=== PATIENT | female | born 1970 | race Caucasian/White ===

== ENCOUNTER → 2017-11-20 09:32 | Outpatient (CLI) | payer OTHER, SELFPAY ==
--- NOTE | 2017-11-20 09:37 | HPBD_ITS ---
STUDY: DUAL ENERGY X-RAY ABSORPTIOMETRY / DXA REASON FOR EXAM: Female, 47 years old. History of celiac disease. Loss of height. TECHNIQUE: Bone Mineral Density (BMD) measurements of lumbar spine and bilateral hips were obtained. COMPARISON: Comparison is made with prior study dated November 17, 2015. FINDINGS: Lumbar Spine (L1-L4): g/cm2 (1.155) / T-score (-0.2) / Z-score (-0.2) Findings are suggestive of normal bone density with a low fracture risk. Left Femur Total: g/cm2 (0.787) / T-score (-1.7) / Z-score (-1.5) Left Femoral Neck: g/cm2 (0.686) / T-score (-2.5) / Z-score (-2.0) Right Femur Total: g/cm2 (0.849) / T-score (-1.3) / Z-score (-1.0) Right Femoral Neck: g/cm2 (0.779) / T-score (-1.9) / Z-score (-1.3) The T-Scores on the most recent prior examination were: Lumbar Spine (L1-L4): There has been improvement of bone density since the previous examination. Left Femur Total: which represents a worsening of 1.0%. Right Femur Total: which represents a worsening of 1.0%. HPBD/Dexa Bone Density Study (HP) IMPRESSION: The patient is considered osteopenic as outlined below according to World [place] Organization (WHO) criteria with a moderate fracture risk. There has been worsening of bone density since the previous examination. Reference Information: The T-score is the number of standard deviations above or below the standard which is normal for young adults at their peak bone mineral density. The World Health Organization (WHO) interprets the T-scores as follows: Above -1 Normal bone density Between -1 and -2.5 Osteopenia Equal to / or below -2.5 Osteoporosis As a practical clinical guideline, osteopenia may be graded as follows: Mild -1 through -1.5 Moderate -1.6 through -2.0 Severe -2.1 through -2.4 The Z-score is the number of standard deviations above or below age-matched controls. A Z-score of less than -1.5 would be considered abnormal. References: 1. NIH Osteoporosis and Related Bone Diseases http://www.osteo.org 2. International Society for Clinical Densitometry http://www.iscd.org 3. National Osteoporosis Foundation http://www.nof.org Electronically Signed: Wilson Escobedo MD at 12:54 EDT Tel [phone], Service support ,
== END ==
PROVIDERS: Family Provider Internal Medicine; PCP Internal Medicine; Visit Provider Internal Medicine
DX: M81.0 Age-related osteoporosis without current pathological fracture (principal)
CPT/HCPCS: 77080

== ENCOUNTER → 2018-02-01 13:01 | Outpatient (CLI) | payer OTHER, SELFPAY ==
[2018-02-01 17:31] LABS: Chlamydia Trachomatis by PCR Negative (Negative); Neisserai gonorrhoeae by PCR Negative (Negative); Probe Check PASS; Sample Adequacy Control PASS; Specimen Processing Control PASS
== END ==
PROVIDERS: Visit Provider Obstetrics & Gynecology
DX: Z11.3 Encounter for screening for infections with a predominantly sexual mode of transmission (principal)
CPT/HCPCS: 87491; 87591

== ENCOUNTER → 2018-02-25 16:06 | Outpatient (CLI) | payer OTHER, SELFPAY ==
--- NOTE | 2018-02-25 16:19 | BI_ITS ---
MAMMOGRAPHY - BILATERAL SCREENING REASON FOR EXAM: Female, 47 years old. Routine annual screening examination. PERTINENT HISTORY: Non-contributory. TECHNIQUE: Digital bilateral breast esau (3D mammographic acquisition) in the CC and MLO projections. 2-D mediolateral oblique (MLO) and craniocaudad (CC) views of both breasts were obtained. CAD: Full Field Digital Mammography with Computer Added Detection was performed. COMPARISON: Comparison is made with prior study dated February 08, 2017 and February 07, 2016. FINDINGS: Breast Composition: The breasts are heterogeneously dense, which may obscure small masses. There are no dominant masses or suspicious calcifications. Once again, there is asymmetry of breast tissue were more breast tissue is seen in the retroareolar region of the right breast as compared to the left side. No other significant abnormalities are identified. There has been no significant change since the prior study. BI/SCREENING MAMM (CAD), BILAT IMPRESSION: Stable bilateral screening mammogram. Yearly follow-up mammogram recommended. (A) ASSESSMENT CATEGORY: BIRADS Category 2: Benign. A letter regarding these results will be sent to the patient by the facility within 30 days. Approximately 10% of breast cancers are not detected by mammography. A normal mammogram should not delay biopsy of a clinically suspicious abnormality. [id number] Electronically Signed: Wilson Escobedo MD at 8:18 EDT Tel [phone], Service support ,
== END ==
PROVIDERS: Family Provider Internal Medicine; PCP Internal Medicine; Visit Provider Obstetrics & Gynecology
DX: Z12.31 Encounter for screening mammogram for malignant neoplasm of breast (principal)
CPT/HCPCS: 77063; 77067

== ENCOUNTER → 2018-10-25 15:26 | Outpatient (CLI) | payer OTHER, SELFPAY ==
--- NOTE | 2018-10-25 15:30 | RAD_ITS ---
STUDY: X-RAY CHEST REASON FOR EXAM: Female, 47 years old. Cough TECHNIQUE: Frontal and lateral views of the chest were obtained. COMPARISON: Prior comparison studies are not available for review at this time. FINDINGS: Lines and tubes: None. Lungs: Adequately aerated. No focal airspace opacities. Pleura: No demonstrated abnormality. Mediastinum/keara: Unremarkable. Cardiovascular: Normal size cardiac silhouette. Central vascularity unremarkable. Thoracic aorta unremarkable. Soft tissues: Unremarkable. Bones: Unremarkable. Upper abdomen: No demonstrated abnormality. RAD/Chest PA and Lateral IMPRESSION: No evidence of focal consolidation or pleural effusion. Electronically Signed: Darlene Dahl MD at 15:07 EST , Service support ,
== END ==
PROVIDERS: Family Provider Internal Medicine; PCP Internal Medicine; Referring Provider Nurse Practitioner; Visit Provider Nurse Practitioner
DX: R05 Cough (principal)
CPT/HCPCS: 71046

== ENCOUNTER → 2019-02-26 11:55 | Outpatient (CLI) | payer OTHER, SELFPAY ==
--- NOTE | 2019-02-26 11:57 | BI_ITS ---
MAMMOGRAPHY - BILATERAL SCREENING 3-D TOMOSYNTHESIS REASON FOR EXAM: Female, 48 years old. Bilateral Screening 3-D tomosynthesis PERTINENT HISTORY: History of control for 22 years.. TECHNIQUE: 2-D mammograms and 3-D Tomosynthesis of the breast (s) were performed. CAD was performed. COMPARISON: February 25, 2018, February 08, 2017, February 07, 2016 FINDINGS: The breast composition is almost entirely fat. Scattered benign calcifications are seen. No dense spiculated masses or suspicious microcalcifications are identified. No architectural distortion is identified. There is no skin thickening or retraction. There has been no significant change since the prior study. BI/SCREEN MAMM (CAD) W/GILDARDO BILAT IMPRESSION: No mammographic signs of malignancy. Routine yearly mammograms recommended. ASSESSMENT CATEGORY: BIRADS Category 2: Benign. A letter regarding these results will be sent to the patient by the facility within 30 days. FOLLOW UP RECOMMENDATION: Yearly follow up mammogram recommended. (A) Approximately 10% of breast cancers are not detected by mammography. A normal mammogram should not delay biopsy of a clinically suspicious abnormality. Electronically Signed: Robert Schuster MD at 11:59 EDT , Service support ,
== END ==
PROVIDERS: Family Provider Internal Medicine; PCP Internal Medicine; Referring Provider Obstetrics & Gynecology; Visit Provider Obstetrics & Gynecology
DX: Z12.31 Encounter for screening mammogram for malignant neoplasm of breast (principal)
CPT/HCPCS: 77063; 77067

== ENCOUNTER → 2019-06-16 12:00 | Outpatient (CLI) | payer OTHER, SELFPAY ==
--- NOTE | 2019-06-16 12:31 | CT_ITS ---
STUDY: CT ABDOMEN AND PELVIS WITH AND WITHOUT CONTRAST REASON FOR EXAM: Female, 48 years old. Lower abdominal pain. History of celiac disease. RADIATION DOSAGE (If Supplied By Facility): CTDIvol = ( 8.11 ) mGy, DLP = ( 747.06 ) mGycm TECHNIQUE: Transaxial images were obtained from the dome of the diaphragm to the symphysis pubis without oral contrast. IV Isovue 300 100 was administered. Sagittal and coronal images were reconstructed. Individualized dose optimization techniques were used for this CT. COMPARISON: Comparison is made with prior study dated October 25, 2016. FINDINGS: The visualized lung bases are unremarkable. The visualized portions of the heart are within normal limits. Normal liver. Normal gallbladder and extrahepatic biliary system. Normal spleen. Normal pancreas. Normal bilateral adrenal glands. Stable one sinus cyst in the inferior portion of the right kidney. Normal left kidney. There is a small hiatal hernia. Normal small intestine. Normal colon. The appendix is visualized and appears normal. Normal abdominal aorta. Normal inferior vena cava. Normal retroperitoneum. Normal urinary bladder. There is a small umbilical hernia containing fat. Normal osseous structures. CT/CT Abd/Pelvis W/WO Contrast IMPRESSION: Normal unenhanced and enhanced CT of the abdomen and pelvis. Electronically Signed: Wilson Escobedo, at 13:48 EDT , Service support ,
[2019-06-16 12:50] LABS: Absolute Lymphocyte Count 2.71 X10^3/uL (0.83-4.51); Absolute Neutrophil Count 5.2 X10^3/uL (2.0-7.7); Basophil# 0.04 X10^3/uL; Basophil% 0.5 % (0-1); Eosinophil# 0.08 X10^3/uL; Eosinophils% 0.9 % (0-5); Hematocrit 37.7 % (37-47); Hemoglobin 12.4 g/dL (12.0-15.0); Lymphocyte # 2.71 X10^3/ul (4.0); Lymphocyte % 31.5 % (19-41); Mean Corp Hgb Conc 32.9 g/dL (32-36); Mean Corpuscular Hgb 31.8 pg (27.0-32.0); Mean Corpuscular Volume 96.7 fL (81-99); Mean Platelet Vol. 9.6 fl (6.2-12.0); Monocyte# 0.56 X10^3/uL; Monocyte% 6.5 % (0-10); NRBC Flagged by Analyzer 0 % (0-5); Neutrophil % 60.4 % (47-70); Platelet Count 235 K/mm3 (150-450); RBC Distribution Width CV 12.2 % (11.6-14.6); RBC Distribution Width SD 42.7 fl (35.1-43.9); White Blood Count 8.6 K/mm3 (4.4-11.0)
[2019-06-16 13:04] LABS: Partial Thromboplast Time 25.5 Seconds (24.1-36.2); Prothrombin Time (Protime)PT. 13.2 SECONDS (11.7-14.9)
[2019-06-16 13:13] LABS: ALB/GLOB Ratio 0.9 RATIO (0.9-2.4); AST(SGOT) 14 U/L (15-37); Alanine Aminotransfer ALT/SGPT 17 U/L (13-56); Albumin, Serum 3.4 g/dL (3.2-5.0); Alkaline Phosphatase 59 U/L (45-117); Anion Gap 8 (5-15); BUN 15 mg/dL (7-18); BUN/Creat Ratio 13.9 RATIO (10-20); Calcium,Total 8.8 mg/dL (8.5-10.1); Chloride 108 mmol/L (98-107); Creatinine, Serum 1.08 mg/dL (0.55-1.02); EST Glomerular Filtration Rate 58 mL/min (>60); Est Glom Filt Rate - Afr Amer 70 mL/min (>60); Globulin 3.6 g/dL (2.2-4.2); Glucose 142 mg/dL (74-106); Potassium 3.7 mmol/L (3.5-5.1); Sodium Level 140 mmol/L (136-145)
== END ==
PROVIDERS: Family Provider Internal Medicine; PCP Internal Medicine; Referring Provider Nurse Practitioner Gerontology; Visit Provider Nurse Practitioner Gerontology
DX: R31.9 Hematuria, unspecified (principal); R10.9 Unspecified abdominal pain
CPT/HCPCS: 36415; 74178; 80053; 85025; 85610; 85730; Q9967

== ENCOUNTER → 2019-11-27 12:58 | Outpatient (CLI) | payer OTHER, SELFPAY ==
--- NOTE | 2019-11-27 13:06 | BD_ITS ---
STUDY: DUAL ENERGY X-RAY ABSORPTIOMETRY / DXA REASON FOR EXAM: Female, 49 years old. HX OF OSTEO WITH THERAPY -- TAKES CALCIUM, VITAMIN D AND MULTIVITAMIN -- HX OF TAKING ACTONEL IN PAST -- DOES HIGH AMOUNT OF EXERCISE- STARTED CROSSFIT FEW YRS AGO -- FAMILY HX OF OSTEO- MOTHER -- VIKI OF 2 INCHES TECHNIQUE: Bone Mineral Density (BMD) measurements of lumbar spine and bilateral hips were obtained. COMPARISON: Comparison is made with prior examination dated November 20, 2017. FINDINGS: Lumbar Spine (L1-L4): g/cm2 (1.171) / T-score (-0.1) / Z-score (0.1) Findings are suggestive of normal bone density with a low fracture risk. Increased thoracic kyphosis. Left Femur Total: g/cm2 (0.812) / T-score (-1.6) / Z-score (-1.2) Left Femoral Neck: g/cm2 (0.733) / T-score (-2.2) / Z-score (-1.5) Right Femur Total: g/cm2 (0.841) / T-score (-1.3) / Z-score (-1.0) Right Femoral Neck: g/cm2 (0.760) / T-score (-2.0) / Z-score (-1.3) The T-Scores on the most recent prior examination were: Lumbar Spine (L1-L4): There has been improvement of bone density since the previous examination. Left Femur Total: which represents an improvement of 3.2%. Right Femur Total: which represents a worsening of 0.9%. BD/Dexa Bone Density Study IMPRESSION: The patient is considered osteopenic as outlined below according to World [place] Organization (WHO) criteria with a moderate fracture risk. There has been improvement of bone density since the previous examination. Reference Information: The T-score is the number of standard deviations above or below the standard which is normal for young adults at their peak bone mineral density. The World Health Organization (WHO) interprets the T-scores as follows: Above -1 Normal bone density Between -1 and -2.5 Osteopenia Equal to / or below -2.5 Osteoporosis As a practical clinical guideline, osteopenia may be graded as follows: Mild -1 through -1.5 Moderate -1.6 through -2.0 Severe -2.1 through -2.4 The Z-score is the number of standard deviations above or below age-matched controls. A Z-score of less than -1.5 would be considered abnormal. References: 1. NIH Osteoporosis and Related Bone Diseases http://www.osteo.org 2. International Society for Clinical Densitometry http://www.iscd.org 3. National Osteoporosis Foundation http://www.nof.org Electronically Signed: Wilson Escobedo, at 15:28 EDT , Service support ,
== END ==
PROVIDERS: PCP Internal Medicine; Referring Provider Internal Medicine; Visit Provider Internal Medicine
DX: M81.0 Age-related osteoporosis without current pathological fracture (principal)
CPT/HCPCS: 77080

== ENCOUNTER → 2020-03-02 14:40 | Outpatient (CLI) | payer OTHER, SELFPAY ==
--- NOTE | 2020-03-02 14:43 | BI_ITS ---
MAMMOGRAPHY - BILATERAL SCREENING REASON FOR EXAM: Female, 49 years old. Routine annual screening examination. PERTINENT HISTORY: Non-contributory. TECHNIQUE: Digital bilateral breast gildardo (3D mammographic acquisition) in the CC and MLO projections. 2-D mediolateral oblique (MLO) and craniocaudad (CC) views of both breasts were obtained. CAD: Full Field Digital Mammography with Computer Added Detection was performed. COMPARISON: Comparison is made with prior examination dated February 26, 2019 and February 25, 2018. FINDINGS: Breast Composition: The breasts are heterogeneously dense, which may obscure small masses. There are no dominant masses or suspicious calcifications. No other significant abnormalities are identified. There has been no significant change since the prior study. BI/SCREEN MAMM (CAD) W/GILDARDO BILAT IMPRESSION: Stable bilateral screening mammogram. Yearly follow-up mammogram recommended. (A) ASSESSMENT CATEGORY: BIRADS Category 1: Negative. A letter regarding these results will be sent to the patient by the facility within 30 days. Approximately 10% of breast cancers are not detected by mammography. A normal mammogram should not delay biopsy of a clinically suspicious abnormality. [id number] Electronically Signed: Wilson Escobedo, at 15:48 EDT , Service support ,
== END ==
PROVIDERS: PCP Internal Medicine; Referring Provider Obstetrics & Gynecology; Visit Provider Obstetrics & Gynecology
DX: Z12.31 Encounter for screening mammogram for malignant neoplasm of breast (principal)
CPT/HCPCS: 77063; 77067

== ENCOUNTER → 2020-04-22 | Outpatient (CLI) | payer OTHER, SELFPAY | END | disposition home or self-care (01) | LOC: LABSPEC 15:26 | PROVIDERS: PCP Internal Medicine; Referring Provider Otolaryngology; Visit Provider Otolaryngology | DX: J02.9 Acute pharyngitis, unspecified (principal) | CPT/HCPCS: 87070 ==

== ENCOUNTER → 2020-05-05 07:56 | Outpatient (CLI) | payer OTHER, SELFPAY ==
--- NOTE | 2020-05-05 08:01 | US_ITS ---
STUDY: ABDOMINAL ULTRASOUND - RIGHT UPPER QUADRANT REASON FOR VISIT: Female, 49 years old EPIGASTRIC PAIN TECHNIQUE: Ultrasound evaluation of the right upper quadrant was performed with real-time and static tejeda-scale imaging. TECHNICAL QUALITY: Adequate. COMPARISON: Comparison is made with prior examination dated 08/24/2010. FINDINGS: Liver: The liver measures 13.9 cm. There is mild increased echogenicity consistent with mild fatty infiltration. The bile ducts are within normal limits. There is hepatic color flow. The direction of portal flow is hepatopetal. There is no demonstrated mass lesion. Gallbladder: Normal distended gallbladder. The gallbladder wall measures 2.1 mm. There is a negative sonographic Beltran''s sign. There is no pericholecystic fluid. There are no gallstones. There is a 2 mm polyp adherent to the gallbladder wall. Common Bile Duct (C.B.D.): The common bile duct measures 4.1 mm. Pancreas: Normal size of the head, body and tail of the pancreas. There is increased echogenicity of the pancreas. There is no demonstrated pancreatic mass or cyst. Right Kidney: Normal size of the right kidney. The right kidney measures 9.3 cm x 4.7 cm x 3.4 cm. Normal renal cortex. The right cortex measures 1.2 cm. There is a 1 cm x 1.2 cm x 0.9 cm renal cyst. There is no right hydronephrosis. US/Abdomen Limited IMPRESSION: Mild fatty infiltration of the liver. 2 mm gallbladder polyp. Electronically Signed: Wilson Escobedo, at 13:38 EDT , Service support ,
== END ==
PROVIDERS: PCP Internal Medicine; Referring Provider Internal Medicine; Visit Provider Internal Medicine
DX: K76.0 Fatty (change of) liver, not elsewhere classified (principal); K82.4 Cholesterolosis of gallbladder
CPT/HCPCS: 76705

== ENCOUNTER 2020-05-31 08:09 | Day surgery (SDC) | payer OTHER, SELFPAY ==
[2020-05-14 13:28] VITALS: BMI 25.4
--- NOTE | 2020-05-18 01:34 | HP_ITS ---
Intake Vital Signs 05/14/20 Height 5 ft 05/14/20 Weight: 130 lb 05/14/20 BP 126/91 H 05/14/20 Blood Pressure Location Rt brachial 05/14/20 Position Sitting 05/14/20 Respiration 18 Intake Visit Reasons: GALLBLADDER POLYP Vinyl Dipper Required: No Is patient in pain?: No Allergies Penicillins Allergy (Mild, Verified 05/14/20 13:29) Unknown Medications calcium carbonate 500 mg calcium (1,250 mg) tablet 500 mg PO DAILY 05/14/20 [History Confirmed 05/14/20] lactobacillus combination no.8 3 billion cell capsule 3,000 mmu cells PO DAILY 05/14/20 [History Confirmed 05/14/20] multivitamin 1 tab PO DAILY 05/14/20 [History Confirmed 05/14/20] norethindrone 1.5 mg-ethinyl estradiol 30 mcg(21)/iron 75 mg(7) tablet tab PO 05/14/20 [History Confirmed 05/14/20] omeprazole 40 mg capsule,delayed release ea PO 05/14/20 [History Confirmed 05/14/20] PFSH Medical History Acid reflux (Acute) Surgical History S/P section (Acute) Family History Father Hypertension Social History (Updated 05/18/20 @ 13:[address] Abdifatah Lee MD) Smoking Status: Never smoker alcohol intake: current alcohol intake frequency: holidays/special occasions only HPI HPI Surgical H&P: Yes HPI: SAMANTHA ESCALANTE, is a 49 F who presents to the office today for Evaluation for reflux. On November 16 she was seen by her ear nose and throat physician who diagnosed her with chronic sore throat secondary to reflux and she was subsequently started on a PPI. She is been having increasing burping spells of diarrhea her sore throat is somewhat better but not completely better. She states that she is still having discharge post nasally. Patient has a history of celiac disease is been quite some years since her last upper endoscopy. An ultrasound of her gallbladder was obtained which showed gallbladder wall to measure 2 mm a negative Beltran sign no pericholecystic fluid no gallstones and a 2 mm polyp adherent to the gallbladder wall. Common bile duct measured 4.1 cm. ROS General General: Yes fatigue; no weight change, appetite, colon cancer, breast cancer or weakness HEENT HEENT: No difficulty swallowing, eye injury, eye surgery, swollen glands or hoarseness Endo Endocrine: No thyroid disease, diabetes mellitus, thyroid cancer, Hair loss, heat intolerance or cold intolerance Skin Skin: No rash or changing moles Breast Breast: No left breast lump, right breast lump, nipple discharge, breast pain, abnormal mammogram, abnormal US or breast enlargement Musc Musculoskeletal: Yes back problems; no arthritis, rheumatoid arthritis, gout or joint pain Cardio Cardiovascular: No murmur, pacemaker, heart disease, atrial fibrillation, high blood pressure, heart attack, heart stent, palpitations, shortness of breat with exertion or chest pain Psych Psychiatric: No depression, anxiety or hearing voices Resp Respiratory: No shortness of breath, No sleep apnea, No cough, No COPD, No asthma, No emphysema, No wheezing Gastro Gastrointestinal: Yes abdominal pain, Yes nausea or vomiting, Yes diarrhea, Yes constipation, No blood in stool, Yes acid reflux, Yes hemorrhoids, No ulcers, Yes gallbladder problem, No black,tarry stools Ashutosh Hematologic: No blood thinners, No blood disorders, No bleeding, No anemia, No blood clots Neuro Neurologic: No system reviewed and no additional complaints, except as docu, No as per HPI, No abnormal walking, No abnormal hearing, No abnormal movements, No abnormal speech, No behavioral changes, No burning sensations, No confusion, No seizure-like activity, No unsteadiness, No dizziness, No localized weakness, No frequent falls, No headache(s), No lack of coordination, No loss of vision, No memory loss, No numbness, No other visual disturbances, No radiating pain, No restless legs, No sensory deficit, No fainting, No tingling, No tremor(s), No weakness, No other Exam Const General: no acute distress, well developed, well hydrated Orientation: oriented to person, oriented to place, oriented to time [facility] Head: normocephalic, atraumatic Ears: external ears normal Mouth: moist mucous membranes Eyes Sclera: sclerae normal Pupils: normal by confrontation Neck Neck: no lymphadenopathy noted Neck mass: No Thyroid: thyroid normal, symmetrical Chest Chest palpation & inspection: normal inspection of the chest Breast Palpation: No nipple discharge Resp Effort & Inspection: normal respiratory effort Auscultation: clear to auscultation bilaterally Percussion: percussion normal Cardio Rate: regular rate Rhythm: regular rhythm Heart Sounds: no murmurs GI Palpation: soft, no hepatosplenomegaly, no masses, nontender Rectal Exam: other Other: Rectal exam deferred. Extrem General: normal to inspection, no clubbing, cyanosis or edema Assessment & Plan Problems 1. Gastroesophageal reflux disease, esophagitis presence not specified K21.9 2. Polyp of gallbladder K82.4 Plan I have discussed the above with the patient. I have offered the patient esophagogastroduodenoscopy for evaluation. I have explained the risks/benefits of the procedure and described the procedure. I have discussed the risks with the patient, including but not limited to: infection, bleeding, perforation of the GI tract requiring emergency surgery, inability to complete the procedure, injury to any internal organs, complications of anesthesia, etc. - the patient understands and agrees to proceed. I have answered all the patient's questions to the patient's satisfaction and the patient has no further questions. The patient has been given instructions for the colon cleansing preparation. We will do a biopsy of her small intestines. If this exam really is negative we have a couple avenues to go possibly obtaining a gastric emptying study or evaluating her gallbladder with a HIDA scan with ejection fraction. I will wait to see what we find with the upper scope first prior to further work-up. Coding Level of Care Code Off vis,new,level 3 Diagnoses Gastroesophageal reflux disease, esophagitis presence not specified K21.9 ??Esophagitis presence: esophagitis presence not specified Polyp of gallbladder K82.4 COVID (Procedure Consent) Procedure Criteria Procedure Criteria: Yes Elective The surgeon/proceduralist and patient have discussed in detail the risk of exposure to and/or potential harm posed by the COVID-19 virus with having a surgery/procedure at this time versus the risk of? delaying the surgery/procedure. It is not possible to know either the risk of delaying the surgery or procedure or chance of getting an infection with perfect accuracy, but a joint decision was made between the patient and the surgeon/proceduralist ?to proceed at this time with the scheduled surgery/procedure as indicated on the consent form. 05/18/20 1335 <Electronically signed by Abdifatah leija MD> Date _ Abdifatah Lee MD I have re-examined the patient. There are no clinical changes since date of exam.
[2020-05-31 08:38] LABS: Internal QC Validated? YES +Cl - CLEAR BKGD; Pregnancy, Urine Negative Negative
[2020-05-31 08:42] VITALS: BP 117/83; PULSE 75; RESP 16; TEMP 37.1; O2SAT 100; BMI 25.6
[2020-05-31] MEDS: Lactated Ringers 1,000 ML 100 ML IV (08:47)
--- NOTE | 2020-05-31 09:15 | EGD_PTH ---
PATIENT: SAMANTHA ESCALANTE LOC: EN U#:[id number] AGE/SX: 49/F ROOM: RE05/31/[address]: Dr. Abdifatah Lee MD : 1970 BED: DIS: 05/31/2020 SPEC #: [id number] RECD: 05/31/20 12:04 STATUS: THIEN SLY #: [id number] KASHMIR: 05/31/20 09:[address]: Abdifatah Lee DEPT: SURGICAL PATHOLOGY RECD BY: Giacomo Andre ENTERED: 05/31/20 13:47 SP TYPE: EGD BIOPSY OTHR DR: Dr. Renee Carroll DO Tissues: A - Duodenum, NOS B - Gastric mucous membrane C - Esophagus, NOS Procedures: Special Stain Group II Surgery Specimen Level IV Alcian Blue/PAS (control) HEADER OPERATION: EGD ([facility] [place]) PRE-OP DIAGNOSIS: GERD TISSUE SUBMITTED: A - Duodenal biopsy, B - Antrum biopsy for histo and H. pylori, C - Distal esophagus biopsy MICROSCOPIC DIAGNOSIS A. Duodenum, biopsy: No pathologic change. B. Gastric antrum, biopsy: Minimal chronic inflammation. See comment. C. Distal esophagus, biopsy: Gastroesophageal junctional biopsy with minimal chronic inflammation. No evidence of esophagitis. No evidence of goblet cell metaplasia. See comment. AM:malissa 06/01/20 COMMENT B. The results of immunohistochemistry for Helicobacter pylori will be reported separately ([id number]). C. Alcian blue/PAS stain with matched control supports the above diagnosis. MICROSCOPIC DESCRIPTION Slides are reviewed. GROSS DESCRIPTION A - Received in fixative is one container labeled with the patient's name and designated duodenum biopsy. The specimen consists of two irregular fragments of light pedraza soft tissue that in aggregate measure 0.7 x 0.5 x 0.1 cm. The specimen is totally submitted in one cassette. B - Received in fixative is one container labeled with the patient's name and designated antrum biopsy. The specimen consists of one irregular fragment of light pedraza soft tissue that measures 0.7 x 0.2 x 0.1 cm. The specimen is totally submitted in one cassette. C - Received in fixative is one container labeled with the patient's name and designated distal esophagus biopsy. The specimen consists of two irregular fragments of light pedraza soft tissue that in aggregate measure 0.6 x 0.6 x 0.1 cm. The specimen is totally submitted in one cassette. / AM:malissa 05/31/20 TC:3 CPT: 23711 x3, [id number]
--- NOTE | 2020-05-31 09:15 | IMM_PTH ---
PATIENT: SAMANTHA ESCALANTE LOC: EN U#:[id number] AGE/SX: 49/F ROOM: RE05/31/[address]: Dr. Abdifatah Lee MD : 1970 BED: DIS: 05/31/2020 SPEC #: [id number] RECD: 05/31/20 14:33 STATUS: THIEN REQ #: [id number] KASHMIR: 05/31/20 09:[address]: Abdifatah Lee DEPT: IMMUNOHISTOCHEMISTRY RECD BY: Sarai Goddard ENTERED: 05/31/20 14:34 SP TYPE: IMMUNO OTHR DR: Dr. Renee Carroll DO Tissues: B - Stomach, NOS Procedures: H Pylori (initial) PHYSICIAN & INSTITUTION [place] [id number] SPECIMEN INFORMATION: Tissue Source: B - Antrum biopsy Clinical Info: GERD Specimen Number: [id number] CPT code: 49628 METHODOLOGY: Deparaffinized sections of prefer/formalin-fixed tissue or PAP/DQ stained slides are incubated with monoclonal/polyclonal antibodies/oligonucleotide probes. Localization is made via biotin free immunoperoxidase method. Appropriate controls are performed and reacted as expected. Results on target cell population are indicated in the following table: RESULTS: ANTIBODY / CLONE RESULT Block B H Pylori (polyclonal) negative These tests were developed and their performance characteristics determined by [facility]. They may not have been cleared or approved by the U.S. Food and Drug Administration. The FDA has determined that such clearance or approval is not necessary. INTERPRETATION: B. Antrum, biopsy: Negative for Helicobacter pylori organisms. AM:malissa 06/01/20
[2020-05-31 09:36] VITALS: BP 107/83; BP 117/83; PULSE 80; RESP 16; TEMP 37.2; O2SAT 100
--- NOTE | 2020-05-31 09:38 | OP.EGD_ITS ---
Patient Name: Lluvia Garrido Procedure Date: 05/31/2020 9:10 AM Date of : 1970 Age: 49 Procedure: Upper GI endoscopy Indications: Gastro-esophageal reflux disease Providers: Abdifatah Lee MD Referring MD: Renee Carroll Medicines: See the Anesthesia note for documentation of the administered medications Patient Profile: This is a 49 year old female. Refer to note in patient chart for documentation of history and physical. Complications: No immediate complications. Procedure: Pre-Anesthesia Assessment: - Prior to the procedure, a History and Physical was performed, and patient medications and allergies were reviewed. The patient's tolerance of previous anesthesia was also reviewed. The risks and benefits of the procedure and the sedation options and risks were discussed with the patient. All questions were answered, and informed consent was obtained. Prior Anticoagulants: The patient has taken no previous anticoagulant or antiplatelet agents. ASA Grade Assessment: II - A patient with mild systemic disease. After reviewing the risks and benefits, the patient was deemed in satisfactory condition to undergo the procedure. After obtaining informed consent, the endoscope was passed under direct vision. Throughout the procedure, the patient's blood pressure, pulse, and oxygen saturations were monitored continuously. The Endoscope was introduced through the mouth, and advanced to the second part of duodenum. The upper GI endoscopy was accomplished without difficulty. The patient tolerated the procedure well. Scope In: 9:27:38 AM Scope Out: 9:32:08 AM Total Procedure Duration Time 0 hours 4 minutes 30 seconds Findings: LA Grade A (one or more mucosal breaks less than 5 mm, not extending between tops of 2 mucosal folds) esophagitis with no bleeding was found at the gastroesophageal junction. Biopsies were taken with a cold forceps for histology. Localized mildly erythematous mucosa without bleeding was found in the prepyloric region of the stomach. Biopsies were taken with a cold forceps for Helicobacter pylori testing. The examined duodenum was normal. Biopsies for histology were taken with a cold forceps for evaluation of celiac disease. Impression: - LA Grade A reflux esophagitis. Biopsied. - Erythematous mucosa in the prepyloric region of the stomach. Biopsied. - Normal examined duodenum. Biopsied. Recommendation: - Await pathology results. - Repeat upper endoscopy (date not yet determined) for surveillance. - Return to my office in 1 week. - Continue present medications. Procedure Code(s): --- Professional --- 69524, Esophagogastroduodenoscopy, flexible, transoral; with biopsy, single or multiple Diagnosis Code(s): --- Professional --- K21.0, Gastro-esophageal reflux disease with esophagitis K31.89, Other diseases of stomach and duodenum CPT copyright 2017 [employer]. All rights reserved. The codes documented in this report are preliminary and upon braille coder review may be revised to meet current compliance requirements. MD Abdifatah Martinez MD 05/31/2020 9:37:37 AM This report has been signed electronically. Number of Addenda: 0 Note Initiated On: 05/31/2020 9:10 AM
--- NOTE | 2020-05-31 09:38 | OP.CCLET_ITS ---
05/31/2020 Renee Carroll [address] [place] [address] Re : Upper GI endoscopy procedure for Lluvia Hema Dear Dr. Carroll This procedure was performed on Sunday, May 31, 2020. My impressions and recommendations are as follows: Impressions : - LA Grade A reflux esophagitis. Biopsied. - Erythematous mucosa in the prepyloric region of the stomach. Biopsied. - Normal examined duodenum. Biopsied. Recommendations : - Await pathology results. - Repeat upper endoscopy (date not yet determined) for surveillance. - Return to my office in 1 week. - Continue present medications. My findings are described in the full procedure note, which is enclosed. If I can be of further assistance, please feel free to contact me at Doctor phone number(s): , Fax: [phone], Work: . Sincerely, MD Abdifatah Martinez MD 05/31/2020 9:37:37 AM This report has been signed electronically.
[2020-05-31 09:40] VITALS: BP 100/77; BP 117/83; PULSE 83; RESP 16; O2SAT 98
[2020-05-31 09:45] VITALS: BP 108/88; BP 117/83; PULSE 76; RESP 18; O2SAT 100
[2020-05-31 09:51] VITALS: BP 117/83; BP 122/77; PULSE 66; RESP 18; TEMP 37.1; O2SAT 100
[2020-05-31 10:12] VITALS: BP 117/83
== END 2020-05-31 10:25 | disposition home or self-care (01) ==
LOC: EN 08:10 → AC 08:10
PROVIDERS: Anesthesiology; PCP Internal Medicine; Referring Provider Internal Medicine; Visit Provider Surgery
PROC: 0DJ08ZZ Inspection of Upper Intestinal Tract, Via Natural or Artificial Opening Endoscopic (ICD-10-PCS; CPT 43235; principal; 2020-05-31 09:10)
DX: K21.0 Gastro-esophageal reflux disease with esophagitis (principal); K31.89 Other diseases of stomach and duodenum; K82.4 Cholesterolosis of gallbladder; Z11.59 Encounter for screening for other viral diseases
CPT/HCPCS: 43239; 81025; 87635; 88305; 88313; 88342; C9803; J7120; U0003

== ENCOUNTER → 2020-08-10 06:52 | Outpatient (CLI) | payer OTHER, SELFPAY ==
--- NOTE | 2020-08-10 06:55 | ECHOD_ITS ---
Reason For Study: CP Procedure This was a 2D Doppler, Color Flow transthoracic echocardiogram. Exam performed in department. Left Ventricle Normal LV size. Left ventricular systolic function is normal. The estimated ejection fraction is 65 %. Transmitral doppler flow suggestive of impaired relaxation of left ventricle. No regional wall motion abnormalities noted. Right Ventricle Normal RV size. Normal systolic function. Atria Normal left atrium. Normal right atrium. No doppler evidence for ASD. Mitral Valve There is no mitral annular calcification. Normal mitral valve. Trivial mitral valve insufficiency. Tricuspid Valve Normal tricuspid valve. Trivial tricuspid valve insufficiency. Aortic Valve Trisinus/trileaflet aortic valve. Normal aortic valve. Pulmonic Valve The pulmonic valve is not well visualized. Trivial pulmonic valve insufficiency. Great Vessels The aortic root is not well visualized. Pericardium/Pleural No pericardial effusion. MMode/2D Measurements & Calculations LVIDd: 3.6 cm IVSd: 0.98 cm LA dimension: 3.0 cm LVIDs: 2.2 cm LVPWd: 0.81 cm RVDd: 2.4 cm FS: 38.7 % LAV(MOD-bp): 26.3 ml LA A4 area: 12.1 cm2 RA A4 area: 9.0 cm2 LAV(MOD-bp) Indexed: 16.9 ml/m2 LAV(MOD-sp2): 21.0 ml LAV(MOD-sp4): 28.0 ml Time Measurements MV dec time: 0.19 sec Doppler Measurements & Calculations MV E max farbizio: 80.8 cm/sec Lat Peak E' Fabrizio: 9.8 cm/sec Med Peak E' Fabrizio: 7.7 cm/sec MV A max fabrizio: 100.4 cm/sec E/E' lat: 8.2 E/E' med: 10.5 MV E/A: 0.80 MV V2 max: 89.5 cm/sec MV P1/2t max fabrizio: 80.0 cm/sec Ao V2 max: 158.5 cm/sec MV max P.2 mmHg MV P1/2t: 73.0 msec Ao max P.1 mmHg MV V2 mean: 49.8 cm/sec MV dec slope: 321.2 cm/sec2 MV mean P.2 mmHg MVA(P1/2t): 3.0 cm2 MV V2 VTI: 21.1 cm LV V1 max: 129.4 cm/sec PA V2 max: 84.7 cm/sec LV V1 max P.7 mmHg Interpretation Summary Left ventricular systolic function is normal. The estimated ejection fraction is 65 %. Trivial mitral valve insufficiency. Trivial tricuspid valve insufficiency. Trivial pulmonic valve insufficiency. Transmitral doppler flow suggestive of impaired relaxation of left ventricle Ordering Physician: Renee Carroll Referring Physician: Renee Carroll Performed By: Tayo Hobson RCS
--- NOTE | 2020-08-10 16:12 | STRESSREP ---
Stress Test Report Date: 08-10-2020 Procedure: Exercise tolerance test/imaging study Indications: Chest pain Consent: Per the patient Procedure: The patient exercised on a Shakeel protocol for 12 minutes completing Stage IV achieving a peak heart rate of 171 bpm (98% predicted maximal heart rate) with a peak blood pressure 140/60 mmHg and a peak MET capacity of 13 METs. The baseline ECG demonstrated normal sinus rhythm. The peak exercise ECG demonstrated no obvious ECG changes. There were no cardiac dysrhythmias pretest, during exercise, or recovery. The functional capacity was considered good. There was no complaint of chest discomfort during exercise or recovery. The examination was discontinued secondary to dyspnea. Impression: 1. Technically adequate (percent predicted maximal heart rate greater than 85%) exercise tolerance test 2. Peak exercise ECG with no obvious ECG changes 3. There were no cardiac dysrhythmias pretest, during exercise, or recovery 4. Nuclear images pending Myocardial perfusion imaging study: Technique: The patient was injected with 11.2 mCi of technetium 99m Cardiolite and subsequently rest SPECT Cardiolite nuclear imaging was obtained in the horizontal long, vertical long, and short axis views. The patient exercised on a Shakeel protocol for 12 minutes completing Stage IV achieving a peak heart rate of 171 bpm (98% predicted maximal heart rate) with a peak blood pressure 140/60 mmHg and a peak MET capacity of 13 METs. The patient was injected with 31.8 mCi of technetium 99m Cardiolite and subsequently stress SPECT Cardiolite nuclear imaging was obtained in the horizontal long, vertical long, and short axis views. A gated Cardiolite study at peak stress was obtained. Interpretation: Rest and stress SPECT Cardiolite nuclear imaging status post realignment, normalization, and attenuation correction, demonstrates the appearance of relative uniform tracer uptake and myocardial perfusion appearing within normal limits. There is end systolic thickening and brightening. The gated Cardiolite study demonstrates myocardial thickening and inward wall motion. The reported LVEF is 90%. Impression: 1. Rest and stress SPECT Cardiolite nuclear imaging demonstrate relative uniform tracer uptake and myocardial perfusion appearing within normal limits. 2. The gated Cardiolite study reports an LVEF of 90%. This note was generated with [employer] software. It may contain incorrect words, spelling, and punctuation that were not noted in checking the note before signing.
== END ==
PROVIDERS: PCP Internal Medicine; Referring Provider Internal Medicine; Visit Provider Internal Medicine
DX: R07.9 Chest pain, unspecified (principal)
CPT/HCPCS: 78452; 93017; 93306; A9500; A4216

== ENCOUNTER → 2020-10-25 16:19 | Outpatient (CLI) | payer OTHER, SELFPAY ==
[2020-10-25 18:01] LABS: Absolute Lymphocyte Count 2.65 X10^3/uL (0.83-4.51); Absolute Neutrophil Count 6.2 X10^3/uL (2.0-7.7); Basophil# 0.05 X10^3/uL; Basophil% 0.5 % (0-1); Eosinophil# 0.06 X10^3/uL; Eosinophils% 0.6 % (0-5); Hematocrit 41.6 % (37-47); Hemoglobin 13.2 g/dL (12.0-15.0); Lymphocyte # 2.65 X10^3/ul (4.0); Lymphocyte % 27.4 % (19-41); Mean Corp Hgb Conc 31.7 g/dL (32-36); Mean Corpuscular Hgb 30.6 pg (27.0-32.0); Mean Corpuscular Volume 96.5 fL (81-99); Mean Platelet Vol. 9.2 fl (6.2-12.0); Monocyte# 0.68 X10^3/uL; NRBC Flagged by Analyzer 0 % (0-5); Neutrophil # 6.19 X10^3/uL (2.7-7.7); Neutrophil % 64.1 % (47-70); Platelet Count 310 K/mm3 (150-450); RBC Distribution Width SD 43.1 fl (35.1-43.9); Red Blood Count 4.31 M/mm3 (4.2-5.4); White Blood Count 9.7 K/mm3 (4.4-11.0)
[2020-10-25 18:48] LABS: Hemoglobin A1c 5.3 % (3.8-5.6)
[2020-10-25 19:03] LABS: AST(SGOT) 14 U/L (15-37); Alanine Aminotransfer ALT/SGPT 24 U/L (13-56); Albumin, Serum 3.6 g/dL (3.2-5.0); Alkaline Phosphatase 62 U/L (45-117); Anion Gap 6 (5-15); BUN 16 mg/dL (7-18); BUN/Creat Ratio 15.7 RATIO (10-20); Calcium,Total 8.6 mg/dL (8.5-10.1); Chloride 104 mmol/L (98-107); Creatinine, Serum 1.02 mg/dL (0.55-1.02); EST Glomerular Filtration Rate 62 mL/min (>60); Est Glom Filt Rate - Afr Amer 74 mL/min (>60); Globulin 3.7 g/dL (2.2-4.2); Glucose 100 mg/dL (74-106); Potassium 3.8 mmol/L (3.5-5.1); Protein, Total 7.3 g/dL (6.4-8.2); Sodium Level 138 mmol/L (136-145)
== END ==
PROVIDERS: PCP Internal Medicine; Referring Provider Internal Medicine; Visit Provider Internal Medicine
DX: L29.9 Pruritus, unspecified (principal); B37.9 Candidiasis, unspecified
CPT/HCPCS: 36415; 80053; 83036; 84443; 85025

== ENCOUNTER → 2021-02-14 16:37 | Outpatient (CLI) | payer OTHER, SELFPAY ==
--- NOTE | 2021-02-14 16:40 | RAD_ITS ---
STUDY: X-RAY - PELVIS AND LEFT HIP REASON FOR EXAM: Female, 50 years old. PAIN TECHNIQUE: 3 views of the pelvis and hip. COMPARISON: None. FINDINGS: There is a non-specific bowel gas pattern. Normal visualized soft tissue structures. Normal bilateral iliac wings, sacroiliac joints and visualized sacrum. Normal bilateral superior and inferior pubic rami. Normal pubic symphysis. Normal bilateral ischial tuberosities. Normal visualized femoral head. Normal acetabulum. Normal hip joint. RAD/HIP, UNI W/ Pelvis 2-3 Views IMPRESSION: Normal x-ray examination of the pelvis and hip. Electronically Signed: Jaspal Linn MD at 11:27 EDT Tel , Service support ,
== END ==
PROVIDERS: PCP Internal Medicine; Referring Provider Nurse Practitioner; Visit Provider Nurse Practitioner
DX: M25.552 Pain in left hip (principal)
CPT/HCPCS: 73502

== ENCOUNTER → 2021-03-04 12:55 | Outpatient (CLI) | payer OTHER, SELFPAY ==
--- NOTE | 2021-03-04 12:57 | BI_ITS ---
MAMMOGRAPHY - BILATERAL SCREENING REASON FOR EXAM: Female, 50 years old. Routine annual screening examination. PERTINENT HISTORY: Non-contributory. TECHNIQUE: Digital bilateral breast gildardo (3D mammographic acquisition) in the CC and MLO projections. 2-D mediolateral oblique (MLO) and craniocaudad (CC) views of both breasts were obtained. CAD: Full Field Digital Mammography with Computer Added Detection was performed. COMPARISON: Comparison is made with prior study dated 03/02/2020 and 02/26/2019. FINDINGS: Breast Composition: The breasts are heterogeneously dense, which may obscure small masses. There are no dominant masses or suspicious calcifications. No other significant abnormalities are identified. There has been no significant change since the prior study. BI/SCRN MAMM (CAD)W/GILDARDO BILAT IMPRESSION: Stable bilateral screening mammogram. Yearly follow-up mammogram recommended. (A) ASSESSMENT CATEGORY: BIRADS Category 1: Negative. A letter regarding these results will be sent to the patient by the facility within 30 days. Approximately 10% of breast cancers are not detected by mammography. A normal mammogram should not delay biopsy of a clinically suspicious abnormality. [id number] Electronically Signed: Wilson Escobedo MD at 13:52 EDT , Service support ,
== END ==
PROVIDERS: PCP Internal Medicine; Referring Provider Obstetrics & Gynecology; Visit Provider Obstetrics & Gynecology
DX: Z12.31 Encounter for screening mammogram for malignant neoplasm of breast (principal)
CPT/HCPCS: 77063; 77067

== ENCOUNTER 2021-11-29 08:29 | Outpatient (CLI) | payer OTHER, SELFPAY ==
--- NOTE | 2021-11-29 08:33 | BD_ITS ---
STUDY: DUAL ENERGY X-RAY ABSORPTIOMETRY / DXA REASON FOR EXAM: Female, 51 years old. M810. Patient is postmenopausal. TECHNIQUE: Bone Mineral Density (BMD) measurements of lumbar spine and bilateral hips were obtained. COMPARISON: Comparison is made with prior study dated 11/27/2019. FINDINGS: Lumbar Spine (L1-L4): g/cm2 (0.994) / T-score (-0.5) / Z-score (0.2) Findings are suggestive of normal bone density with a low fracture risk. Left Femur Total: g/cm2 (0.757) / T-score (-1.5) / Z-score (-1.1) Left Femoral Neck: g/cm2 (0.505) / T-score (-3.1) / Z-score (-2.4) Right Femur Total: g/cm2 (0.805) / T-score (-1.1) / Z-score (-0.7) Right Femoral Neck: g/cm2 (0.614) / T-score (-2.1) / Z-score (-1.4) The T-Scores on the most recent prior examination were: Lumbar Spine (L1-L4): There has been worsening of bone density since the previous examination. Left Femur Total: which represents an improvement of 0.8%. Right Femur Total: which represents an improvement of 3.3%. BD/Dexa Bone Density Study IMPRESSION: The patient is considered osteoporotic as outlined below according to World [place] Organization (WHO) criteria with a high fracture risk. There has been improvement of bone density since the previous examination. Reference Information: The T-score is the number of standard deviations above or below the standard which is normal for young adults at their peak bone mineral density. The World Health Organization (WHO) interprets the T-scores as follows: Above -1 Normal bone density Between -1 and -2.5 Osteopenia Equal to / or below -2.5 Osteoporosis As a practical clinical guideline, osteopenia may be graded as follows: Mild -1 through -1.5 Moderate -1.6 through -2.0 Severe -2.1 through -2.4 The Z-score is the number of standard deviations above or below age-matched controls. A Z-score of less than -1.5 would be considered abnormal. References: 1. NIH Osteoporosis and Related Bone Diseases www osteo.org 2. International Society for Clinical Densitometry www iscd.org 3. National Osteoporosis Foundation www nof.org Electronically Signed: Wilson Escobedo MD at 8:42 EDT ,
== END 2021-11-29 23:59 | disposition home or self-care (01) ==
LOC: OPBD 08:29
PROVIDERS: PCP Internal Medicine; Referring Provider Internal Medicine; Visit Provider Internal Medicine
DX: M81.0 Age-related osteoporosis without current pathological fracture (principal)
CPT/HCPCS: 77080

== ENCOUNTER 2021-12-14 13:17 | Outpatient (CLI) | payer OTHER, SELFPAY ==
[2021-12-14 15:23] LABS: Hemoglobin 13.2 g/dL (12.0-15.0); Mean Corpuscular Hgb 31.7 pg (27.0-32.0); Mean Corpuscular Volume 96.2 fL (81-99); Mean Platelet Vol. 9.9 fl (6.2-12.0); Platelet Count 301 K/mm3 (150-450); RBC Distribution Width CV 12.3 % (11.6-14.6); RBC Distribution Width SD 42.8 fl (35.1-43.9); Red Blood Count 4.16 M/mm3 (4.2-5.4); White Blood Count 7.1 K/mm3 (4.4-11.0)
[2021-12-14 15:31] LABS: PTHIN 59.5 pg/mL (18.4-80.1)
[2021-12-14 15:34] LABS: Vitamin D,25 Hydroxy 51.8 ng/mL
[2021-12-14 15:40] LABS: Erythrocyte Sedimentation Rate 7 mm/hr (0-30)
[2021-12-14 15:43] LABS: AST(SGOT) 11 U/L (15-37); Alanine Aminotransfer ALT/SGPT 21 U/L (13-56); Albumin, Serum 3.4 g/dL (3.2-5.0); Alkaline Phosphatase 53 U/L (45-117); Bilirubin, Direct 0.09 mg/dL (0.00-0.30); Calcium,Total 8.9 mg/dL (8.5-10.1); Globulin 3.6 g/dL (2.2-4.2); Thyroid Stim Hormone (TSH) 3.25 uIU/mL (0.358-3.74)
[2021-12-19 14:08] LABS: PROEL- A/G Ratio 1.2 (0.7-1.7); PROEL- Albumin 3.6 g/dL (2.9-4.4); PROEL- Alpha-1 Globulin 0.2 g/dL (0.0-0.4); PROEL- Alpha-2 Globulin 0.7 g/dL (0.4-1.0); PROEL- Beta Globulin 1.1 g/dL (0.7-1.3); PROEL- TOTAL PROTEIN 6.6 g/dL (6.0-8.5); PROELU- Albumin, Urine 39.7 % (.); PROELU- Alpha-1-Globulin,Ur 1.8 % (.); PROELU- Alpha-2-Globulin,Ur 8.4 % (.); PROELU- Beta Globulin, Ur 23.6 % (.); PROELU- Gamma Globulin, Ur 26.6 % (.)
[2021-12-19 14:51] LABS: Total Protein, Ur < 4.0 mg/dL (Not Estab.)
== END 2021-12-14 23:59 | disposition home or self-care (01) ==
LOC: MTLAB 13:18
PROVIDERS: PCP Internal Medicine; Referring Provider Internal Medicine; Visit Provider Internal Medicine
DX: M81.0 Age-related osteoporosis without current pathological fracture (principal)
CPT/HCPCS: 80076; 82306; 82310; 82652; 83970; 84100; 84165; 84166; 84443; 85027; 85652; 86140

== ENCOUNTER → 2022-05-10 | Outpatient (CLI) | payer OTHER, SELFPAY ==
[2022-05-19 12:31] LABS: Chlamydia By Nucleic Acid AMP NEGATIVE; Gonococcus By Nucleic Acid AMP NEGATIVE
[2022-05-19 12:48] LABS: HPV APTIMA, High Risk Negative
== END | disposition home or self-care (01) ==
LOC: LABSPEC 05-19 11:44
PROVIDERS: PCP Internal Medicine; Visit Provider Student in an Organized Health Care Education/Training Program
DX: Z12.4 Encounter for screening for malignant neoplasm of cervix (principal); Z11.3 Encounter for screening for infections with a predominantly sexual mode of transmission
CPT/HCPCS: 87491; 87591; 87624; 88175; G0145

== ENCOUNTER → 2022-05-12 | Outpatient (CLI) | payer OTHER, SELFPAY ==
--- NOTE | 2022-05-12 12:57 | BI_ITS ---
MAMMOGRAPHY - BILATERAL SCREENING REASON FOR EXAM: Female, 51 years old. Routine annual screening examination. PERTINENT HISTORY: Non-contributory. TECHNIQUE: Digital bilateral breast gildardo (3D mammographic acquisition) in the CC and MLO projections. 2-D mediolateral oblique (MLO) and craniocaudad (CC) views of both breasts were obtained. CAD: Full Field Digital Mammography with Computer Added Detection was performed. COMPARISON: Comparison is made with prior study dated 03/04/2021 and 03/02/2020. FINDINGS: Breast Composition: The breasts are heterogeneously dense, which may obscure small masses. There are no dominant masses or suspicious calcifications. Stable small benign appearing bilateral axillary lymph nodes. No other significant abnormalities are identified. There has been no significant change since the prior study. BI/SCRN MAMM (CAD)W/GILDARDO BILAT IMPRESSION: Stable bilateral screening mammogram. Yearly follow-up mammogram recommended. (A) ASSESSMENT CATEGORY: BIRADS Category 2: Benign. A letter regarding these results will be sent to the patient by the facility within 30 days. Approximately 10% of breast cancers are not detected by mammography. A normal mammogram should not delay biopsy of a clinically suspicious abnormality. [id number] Electronically Signed: Wilson Escobedo MD at 14:23 EDT ,
== END | disposition home or self-care (01) ==
LOC: OPBI 12:55
PROVIDERS: PCP Internal Medicine; Visit Provider Student in an Organized Health Care Education/Training Program
DX: Z12.31 Encounter for screening mammogram for malignant neoplasm of breast (principal)
CPT/HCPCS: 77063; 77067

== ENCOUNTER → 2023-05-22 | Outpatient (CLI) | payer OTHER, SELFPAY ==
--- NOTE | 2023-05-22 10:45 | BI_ITS ---
MAMMOGRAPHY - BILATERAL SCREENING REASON FOR EXAM: Female, 52 years old. Routine annual screening examination. PERTINENT HISTORY: Non-contributory. History of prior left needle breast biopsy. TECHNIQUE: Digital bilateral breast gildardo (3D mammographic acquisition) in the CC and MLO projections. 2-D mediolateral oblique (MLO) and craniocaudad (CC) views of both breasts were obtained. CAD: Full Field Digital Mammography with Computer Added Detection was performed. COMPARISON: Comparison is made with prior study May 12, 2022 and March 04, 2021. FINDINGS: Breast Composition: The breasts are heterogeneously dense, which may obscure small masses. There are no dominant masses or suspicious calcifications. Stable small benign-appearing bilateral axillary lymph nodes. No other significant abnormalities are identified. There has been no significant change since the prior study. BI/SCRN MAMM (CAD)W/GILDARDO BILAT IMPRESSION: Stable bilateral screening mammogram. Yearly follow-up mammogram recommended. (A) ASSESSMENT CATEGORY: BIRADS Category 2: Benign. A letter regarding these results will be sent to the patient by the facility within 30 days. Approximately 10% of breast cancers are not detected by mammography. A normal mammogram should not delay biopsy of a clinically suspicious abnormality. [id number] Electronically Signed: Wilson Escobedo MD at 12:26 EDT ,
== END | disposition home or self-care (01) ==
LOC: OPBI 10:44
PROVIDERS: PCP Internal Medicine; Referring Provider Internal Medicine; Visit Provider Internal Medicine
DX: Z12.31 Encounter for screening mammogram for malignant neoplasm of breast (principal)
CPT/HCPCS: 77063; 77067

== ENCOUNTER → 2024-02-13 | Outpatient (CLI) | payer OTHER, SELFPAY ==
--- NOTE | 2024-02-13 08:30 | BD_ITS ---
STUDY: DUAL ENERGY X-RAY ABSORPTIOMETRY / DXA REASON FOR EXAM: Female, 53 years old. 733.00OsteoporosisBONE DENSITY REASON FOR EXAM TECHNIQUE: Bone Mineral Density (BMD) measurements of lumbar spine and bilateral hips were obtained. COMPARISON: Comparison is made with prior study November 29, 2021. FINDINGS: Lumbar Spine (L1-L4): g/cm2 (1.062) / T-score (0.1) / Z-score (1.0) Findings are suggestive of normal bone density with a low fracture risk. Left Femur Total: g/cm2 (0.775) / T-score (-1.4) / Z-score (-0.9) Left Femoral Neck: g/cm2 (0.591) / T-score (-2.3) / Z-score (-1.5) Right Femur Total: g/cm2 (0.841) / T-score (-0.8) / Z-score (-0.3) Right Femoral Neck: g/cm2 (0.643) / T-score (-1.9) / Z-score (-1.0) The T-Scores on the most recent prior examination were: Lumbar Spine (L1-L4): There has been improvement of bone density since the previous examination. Left Femur Total: which represents an improvement of 2.3%. Right Femur Total: which represents an improvement of 4.4%. BD/Dexa Bone Density Study IMPRESSION: The patient is considered osteopenic as outlined below according to World [employer] Organization (WHO) criteria with a high fracture risk. There has been improvement of bone density since the previous examination. Reference Information: The T-score is the number of standard deviations above or below the standard which is normal for young adults at their peak bone mineral density. The World Health Organization (WHO) interprets the T-scores as follows: Above -1 Normal bone density Between -1 and -2.5 Osteopenia Equal to / or below -2.5 Osteoporosis As a practical clinical guideline, osteopenia may be graded as follows: Mild -1 through -1.5 Moderate -1.6 through -2.0 Severe -2.1 through -2.4 The Z-score is the number of standard deviations above or below age-matched controls. A Z-score of less than -1.5 would be considered abnormal. References: 1. NIH Osteoporosis and Related Bone Diseases www osteo.org 2. International Society for Clinical Densitometry www iscd.org 3. National Osteoporosis Foundation www nof.org Electronically Signed: Wilson Escobedo MD at 15:23 EDT ,
== END | disposition home or self-care (01) ==
PROVIDERS: PCP Internal Medicine; Referring Provider Internal Medicine; Visit Provider Internal Medicine
DX: M81.0 Age-related osteoporosis without current pathological fracture (principal)
CPT/HCPCS: 77080

== ENCOUNTER → 2024-03-18 | Outpatient (CLI) | payer OTHER, SELFPAY ==
--- NOTE | 2024-03-18 07:33 | CT_ITS ---
INDICATION: Supraclavicular adenopathy EXAMINATION: CT CHEST WITH CONTRAST - CT Chest W/ Contrast Injection TECHNIQUE: Helically acquired images were obtained of the chest following IV contrast. A radiation dose optimization technique was used for this scan. IV Contrast dosage and agent: COMPARISON: None. FINDINGS: LUNGS, PLEURA AND LARGE AIRWAYS: No masses, consolidation, or edema. No pleural effusion or thickening. No pneumothorax. THYROID: No thyroid lesions. HEART AND PERICARDIUM: Heart size is normal. No pericardial effusion. VESSELS: Thoracic aorta is not dilated. No aortic dissection. No obvious central pulmonary embolism although this study was not performed with the pulmonary embolism protocol. MEDIASTINUM AND JESSICA: No mediastinal or hilar adenopathy. Esophagus is unremarkable. No hiatal hernia. UPPER ABDOMEN: No acute pathology. BONES: No suspicious lytic or blastic abnormality. CT/Chest WITH Contrast IMPRESSION: Negative contrast enhanced CT of the chest. Electronically Signed: Jaspal Linn MD at 9:20 EDT ,
== END | disposition home or self-care (01) ==
PROVIDERS: PCP Internal Medicine; Referring Provider Internal Medicine; Visit Provider Internal Medicine
DX: R59.0 Localized enlarged lymph nodes (principal)
CPT/HCPCS: 71260; Q9967

== ENCOUNTER → 2024-05-23 | Outpatient (CLI) | payer OTHER, SELFPAY ==
--- NOTE | 2024-05-23 08:08 | BI_ITS ---
MAMMOGRAPHY - BILATERAL SCREENING REASON FOR EXAM: Female, 53 years old. Routine annual screening examination. PERTINENT HISTORY: Non-contributory. TECHNIQUE: Digital bilateral breast gildardo (3D mammographic acquisition) in the CC and MLO projections. 2-D mediolateral oblique (MLO) and craniocaudad (CC) views of both breasts were obtained. CAD: Full Field Digital Mammography with Computer Added Detection was performed. COMPARISON: Comparison is made with prior study dated May 22, 2023 and May 12, 2022. FINDINGS: Breast Composition: The breasts are heterogeneously dense, which may obscure small masses. There are no dominant masses or suspicious calcifications. Stable bilateral axillary lymph nodes. No other significant abnormalities are identified. There has been no significant change since the prior study. BI/SCRN MAMM (CAD)W/GILDARDO BILAT IMPRESSION: Stable bilateral screening mammogram. Yearly follow-up mammogram recommended. (A) ASSESSMENT CATEGORY: BIRADS Category 2: Benign. A letter regarding these results will be sent to the patient by the facility within 30 days. Approximately 10% of breast cancers are not detected by mammography. A normal mammogram should not delay biopsy of a clinically suspicious abnormality. [id number] Electronically Signed: Wilson Escobedo MD at 9:04 EDT ,
== END | disposition home or self-care (01) ==
LOC: OPBI 08:07
PROVIDERS: PCP Internal Medicine; Referring Provider Nurse Practitioner Family; Visit Provider Nurse Practitioner Family
DX: Z12.31 Encounter for screening mammogram for malignant neoplasm of breast (principal)
CPT/HCPCS: 77063; 77067

== ENCOUNTER → 2025-05-06 | Outpatient (CLI) | payer OTHER, SELFPAY ==
[2025-05-10 11:08] LABS: HPV APTIMA, High Risk Negative (Negative)
== END | disposition home or self-care (01) ==
LOC: LABSPEC 16:08
PROVIDERS: PCP Internal Medicine; Visit Provider Nurse Practitioner Family
DX: Z12.4 Encounter for screening for malignant neoplasm of cervix (principal)
CPT/HCPCS: 87624; 88175; G0145

== ENCOUNTER → 2025-05-25 | Outpatient (CLI) | payer OTHER, SELFPAY ==
--- NOTE | 2025-05-25 07:45 | BI_ITS ---
EXAM: SCRN MAMM (CAD)W/GILDARDO BILAT DATE: 05/25/2025 CLINICAL HISTORY: F, Age 54 y/o , SCREEN FOR BREAST CANCER No family history. TECHNIQUE: Procedure Code: [id number] Modality: MG Procedure: SCRN MAMM (CAD)W/GILDARDO BILAT COMPARISON: Prior exam(s) dated May 23, 2024. FINDINGS: TISSUE DENSITY: The breasts are heterogeneously dense, which may obscure small masses. Bilateral Breast Mammographic Findings: No significant masses, calcifications or other abnormalities are identified. Stable fat containing bilateral axillary lymph nodes. No suspicious masses, areas of developing architectural distortion, or suspicious calcifications. There has been no significant interval change. BI/SCRN MAMM (CAD)W/GILDARDO BILAT IMPRESSION: Stable bilateral screening mammogram. OVERALL FINAL ASSESSMENT BI-RADS 2: BENIGN RECOMMENDATION: Routine annual follow-up in 1 Year Additional Recommendation none A letter with findings and recommendations will be mailed to the patient. Reading Location: [place] [address]
== END | disposition home or self-care (01) ==
LOC: OPBI 07:45
PROVIDERS: PCP Internal Medicine; Referring Provider Nurse Practitioner Family; Visit Provider Nurse Practitioner Family
DX: Z12.31 Encounter for screening mammogram for malignant neoplasm of breast (principal)
CPT/HCPCS: 77063; 77067

== ENCOUNTER → 2025-05-26 | Outpatient (CLI) | payer OTHER, SELFPAY ==
[2025-05-26 19:00] LABS: CRP 17.80 mg/L (0.0-3.0)
[2025-05-28 15:08] LABS: Immunoglobulin A 145 mg/dL (87-352)
== END | disposition home or self-care (01) ==
LOC: MTLAB 14:46
PROVIDERS: PCP Internal Medicine; Referring Provider Internal Medicine Gastroenterology; Visit Provider Internal Medicine Gastroenterology
DX: R19.7 Diarrhea, unspecified (principal)
CPT/HCPCS: 36415; 82784; 83516; 86140; 86255

== ENCOUNTER 2025-05-29 08:58 | Emergency (ER) | payer OTHER, SELFPAY ==
[2025-05-29 08:59] VITALS: BP 131/85; PULSE 93; RESP 12; TEMP 36.6; O2SAT 99; BMI 29.5
--- NOTE | 2025-05-29 09:31 | CT_ITS ---
PROCEDURE: BRAIN/HEAD WITHOUT CONTRAST; ORB SELLA POST FOSSA EAR W/O 05/29/2025 REASON FOR EXAM: HEAD TRAUMA; TRAUMA- LEFT EYE TECHNIQUE: Procedure Code: CTBR; CTORB Modality: CT Procedure: BRAIN/HEAD WITHOUT CONTRAST; ORB SELLA POST FOSSA EAR W/O Coronal and Sagittal reconstruction series were provided. One or more dose reduction techniques were used (e.g., Automated exposure control, adjustment of the mA and/or kV according to patient size, use of iterative reconstruction technique. RADIATION DOSE SUMMARY: CTDlvol: 75 mGy DLP: 1286 mGycm COMPARISON: None. FINDINGS: CT brain. .Cerebrum: Normalcerebral volume. Negative for mass the frontal, parietal, temporal and occipital lobes negative. White matter: Negative for periventricular white matter changes. Cerebellum: Negative. Negative for mass. Negative for acute infarction. CSF pathways and ventricles: Negative. Negative for ventricular dilatation or obstruction. Basal ganglia and thalami: Negative. No acute infarctions. Brainstem: Midbrain, shauna and medulla scratchnegative. Calvarium: Negative. Negative for fractures. Orbital structures: Globes negative. Extraocular muscles negative. Paranasal sinuses: No air fluid levels. Remainder of the sinuses negative. Vascular structures: Mild calcifications of the distal intracranial internal carotid arteries. Soft tissues: Left periorbital soft tissue swelling.. Other: : Negative for acute intracranial hemorrhage. Negative for acute infarction. Remainder of exam negative. Orbital/facial CT Mild left preseptal soft tissue swelling. No intraconal or postseptal extension. Globes and extra-ocular muscles otherwise negative. Frontal, ethmoid, sphenoid and maxillary sinuses negative. No fractures. No flu air-fluid levels. Imaged intracranial contents negative. Imaged nasal cavity, oropharynx, hypopharynx and larynx negative. Adjacent structures negative. Remainder of exam negative. CT/Orb Sella Post Fossa Ear w/o IMPRESSION: Negative CT of the brain. Left periorbital soft tissue swelling. Otherwise negative CT of the face/orbits. Reading Location: [id number]
--- NOTE | 2025-05-29 10:02 | EX.ED.GENINJ ---
HPI History of Present Illness Chief Complaint: Head Injury Informant: patient Narrative Narrative: Patient is a 54-year-old female with no signal past medical history presenting after slip and fall with associated head injury. Patient states she was in the shower and trying to shave her legs when she slipped. She fell striking her left forehead/eye area. She denies any loss of conscious. She is not on any oral anticoagulation. She states has a very mild headache. Denies any vision changes. Came in for further evaluation because of the degree of swelling in her left eyebrow area. No associated numbness or tingling. No other complaints or concerns at this time. Does not report any nausea or vomiting. Did not take anything for symptoms prior to arrival [facility] Medical History Seasonal allergies Chronic neck and back pain Celiac disease Diarrhea Hemorrhoids Acid reflux Home Medications ?Medication ?Instructions ?Recorded ?Last Taken ?Type lactobacillus combination no.8 3 3,000 mmu cells PO DAILY 05/14/20 Unknown History billion cell capsule (Adult Probiotic) multivitamin 1 tab PO DAILY 05/14/20 Unknown History calcium 600 mg (as 1 tab PO DAILY 02/03/22 Unknown History carbonate)-vitamin D3 10 mcg (400 unit) tablet (Calcium with Vitamin D) fluticasone furoate 100 ea inhalation 02/03/22 Unknown History mcg/actuation blister powder for inhalation Junel FE 1.5/30 (28) 1.5 mg-30 mcg 1 tab PO QDAY #168 tabs 05/06/25 Unknown Rx (21)/75 mg (7) tablet (norethindrone-e.estradiol-iron) Allergy/AdvReac Type Severity Reaction Status Date / Time Penicillins Allergy Mild Unknown Verified 05/06/25 15:11 Family History Father Hypertension Surgical History History of esophagogastroduodenoscopy (EGD) S/P section Social History number of children: 2 current occupational status: employed sexually active: Yes Smoking Status: Never smoker alcohol intake: current alcohol intake frequency: holidays/special occasions only substance use type: does not use caffeine: Yes Type: carbonated beverages and tea seatbelt use: always do you feel safe at home: Yes ROS ROS ED Constitutional Constitutional ED: Denies chills or fever(s) Eyes Eyes: Denies blurry vision or change in vision ENT ENT ED: Denies ear pain or rhinorrhea Respiratory/Chest Respiratory/Chest: Denies dyspnea Gastrointestinal Gastrointestinal: Denies nausea or vomiting Integumentary Reports other Details: Bruising and swelling to the left eyebrow/periorbital area and forehead Neurologic Neurologic: Reports headache(s); Denies paresthesias or weakness Hematologic/Lymphatic Hematologic/Lymphatic: Denies easy bleeding or easy bruising EXAM Physical Exam Const Vital Signs: 05/29/25 08:59 05/29/25 08:59 Temperature 97.9 F Temperature Source Temporal Pulse Rate 93 Respiratory Rate 12 Respiratory Effort Normal Non-Labored Respiratory Depth Normal Respiratory Pattern Normal Blood Pressure 131/85 H Blood Pressure Mean 100 Pulse Ox 99 Oxygen Delivery Method Room Air Room Air Positive well nourished and well developed General Appearance ED: well developed and NAD HEENT HEENT Narrative: No hemotympanum. Soft tissue swelling and mild tenderness to the left eyebrow/periorbital area with some mild associated ecchymosis. No rapidly expanding hematoma. No palpable skull fracture. Eyes PERRL and EOMs intact bilaterally General Eye ED: Yes other Other Details: No subconjunctival hemorrhage or hyphema appreciated Neck full ROM General: Negative for tenderness Chest Wall inspection of chest normal and palpation of chest normal Resp normal respiratory effort and clear to auscultation bilaterally Cardio regular rhythm Rate: regular rate Extremity normal to inspection and full ROM Neuro oriented x3 and moves all extremities Sheridan Coma Scale: document GCS findings Spontaneous Obeys Commands Oriented 15 Sensorium / Orientation: alert Psych mental status grossly normal and thought process normal Skin Skin Narrative: Bruising and soft tissue swelling/contusion to the lower left forehead/left periorbital area MDM MDM MDM Narrative Medical decision making narrative: Patient evaluated for close head injury with no loss of consciousness. Has soft tissue swelling to her left forehead/periorbital area. Differential includes intracranial hemorrhage, head contusion, orbital fracture or sinus fracture as well as concussion. Physical exam not consistent with any actual ocular trauma or extraocular eye muscle entrapment. She currently has a normal neurologic exam. CT of the brain and orbits is obtained. This is negative can be discharged home with close head injury and contusion precautions. Declines any pain medication in the emergency room. Is given ice pack. Repeat evaluation patient is clinically stable. No significant change in her physical exam or swelling. Will be discharged home with contusion and close head injury precautions Radiography Diagnostic Testing: Clinical Impression(s) from Imaging Studies Brain CT 05/29/25 09:31 IMPRESSION: Negative CT of the brain. Left periorbital soft tissue swelling. Otherwise negative CT of the face/orbits. Reading Location: [facility] CT Orbit Sella Inner 05/29/25 09:31 IMPRESSION: Negative CT of the brain. Left periorbital soft tissue swelling. Otherwise negative CT of the face/orbits. Reading Location: [id number] Discharge Plan Triage Chief Complaint: Head Injury ED Provider: Dian Oneal Dx/Rx/DC Orders Clinical Impression: Closed head injury, Contusion of left eyebrow Instructions: ED Facial Contusion, ED Head Injury (Adult) Prescriptions: No Action multivitamin Tablet 1 tab PO DAILY Adult Probiotic 3 billion cell capsule 3,000 mmu cells PO DAILY Rx Instructions: administer with a meal Arnuity Ellipta 100 mcg/actuation blister with device inhalation calcium carbonate-vitamin D3 [Calcium with Vitamin D] 600 mg-10 mcg (400 unit) tablet 1 tab PO DAILY norethindrone-e.estradiol-iron [Junel FE 1.5/30 (28)] 1.5 mg-30 mcg (21)/75 mg (7) tablet 1 tab PO QDAY Qty: 168 1RF Primary Care Provider: Renee Carroll Referrals: Renee Carroll DO [Primary Care Provider, Internal Medicine] Activity Restrictions/Additional Instructions: Your CT imaging shows soft tissue swelling but nothing that is broken or any bleeding around the brain. If you develop blurry vision, have eye irritation or eye discomfort please follow-up with ophthalmology return to the emergency room. As we discussed you can use lubricating eyedrops for watery/dry eye. Continue to use ice for the swelling. You may alternate ibuprofen and/or Tylenol as needed for any pain. Print Language: Swedish Disposition Disposition: Home, Self Care
[2025-05-29 10:59] VITALS: BP 123/92; PULSE 75; RESP 18; TEMP 36.8; O2SAT 99
== END 2025-05-29 11:00 | disposition home or self-care (01) ==
PROVIDERS: Emergency Provider Emergency Medicine; PCP Internal Medicine; Visit Provider Emergency Medicine
DX: S00.12XA Contusion of left eyelid and periocular area, initial encounter (principal); W18.2XXA Fall in (into) shower or empty bathtub, initial encounter; Y93.89 Activity, other specified
CPT/HCPCS: 70450; 70480; 99282